=== PATIENT | male | born 2000 | race Caucasian/White ===

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

== ENCOUNTER 2023-04-04 20:56 | Emergency (ER) | payer MEDICAID ==
[2023-04-04 21:11] VITALS: BP 141/80; PULSE 80
== END 2023-04-04 23:01 | disposition home or self-care (01) ==
LOC: JP.ED 20:56
DX: R10.9 Unspecified abdominal pain (principal); Z88.0 Allergy status to penicillin; Z91.030 Bee allergy status
CPT/HCPCS: 99283

== ENCOUNTER 2025-03-21 20:06 | Emergency (ER) | payer MEDICAID ==
[2025-03-21 20:18] VITALS: BP 141/73; PULSE 73
[2025-03-21] MEDS: Bacitracin Oint 1 GM U/D Packet TOP ONE (22:18)
[2025-03-21] MEDS: Lidocaine 1% with EPINEPHrine 1:100,000 20 ML MDV INJECT ONE (22:18)
== END 2025-03-21 22:48 | disposition home or self-care (01) ==
LOC: JP.ED 20:06
DX: S61.012A Laceration without foreign body of left thumb without damage to nail, initial encounter (principal); F17.200 Nicotine dependence, unspecified, uncomplicated; Z88.0 Allergy status to penicillin; Z91.030 Bee allergy status; W26.8XXA Contact with other sharp object(s), not elsewhere classified, initial encounter
CPT/HCPCS: 12001; 99282; J2004